=== PATIENT | male | born 1970 | race Caucasian/White ===

== ENCOUNTER 2020-04-06 11:47 | Observation (INO) | payer OTHER ==
[2020-04-06] VITALS (16 sets, daily range): BP systolic 108–128; BP diastolic 63–91
[~2020-04-06] VITALS: Ht 180.3 cm; Wt 89.5 kg
[2020-04-06 12:54] LABS: BASOPHILS # (AUTO) 0.1 X10'3 (0-0.2); BASOPHILS % (AUTO) 0.4 % (0-1); EOSINOPHILS # (AUTO) 0.1 X10'3 (0-0.9); EOSINOPHILS % (AUTO) 0.8 % (0-6); HEMATOCRIT 47.1 % (42.0-52.0); HEMOGLOBIN 15.7 g/dl (14.0-17.9); LYMPHOCYTES # (AUTO) 1.7 X10'3 (1.1-4.8); LYMPHOCYTES % (AUTO) 10.7 % (21-51); MEAN CORPUSCULAR HEMOGLOBIN 30.8 PG (27.0-31.0); MEAN CORPUSCULAR HGB CONC 33.4 g/dL (33.0-36.5); MEAN CORPUSCULAR VOLUME 92.3 FL (78-98); MEAN PLATELET VOLUME 7.8 FL (7.4-10.4); MONOCYTES # (AUTO) 1.4 X10'3 (0-0.9); MONOCYTES % (AUTO) 9.1 % (2-12); NEUTROPHILS # (AUTO) 12.2 X10'3 (1.8-7.7); PLATELET COUNT 430 X10'3 (140-440); RED CELL DISTRIBUTION WIDTH 14.6 % (11.5-14.5); WHITE BLOOD COUNT 15.4 X10'3 (4.5-11.0)
[2020-04-06 13:11] LABS: ALANINE AMINOTRANSFERASE 18 U/L (12-78); ALBUMIN 3.5 G/DL (3.4-5.0); ALBUMIN/GLOBULIN RATIO 0.8 (1.1-1.5); ALKALINE PHOSPHATASE 71 IU/L (46-116); ANION GAP 6 (8-16); ASPARTATE AMINO TRANSFERASE 11 U/L (10-37); BILIRUBIN,TOTAL 0.9 MG/DL (0.1-1.0); BLOOD UREA NITROGEN 19 MG/DL (7-18); BUN/CREATININE RATIO 22.1 (5.4-32.0); CALCIUM 9.3 MG/DL (8.5-10.1); CHLORIDE 102 MMOL/L (99-107); CREATININE 0.86 MG/DL (0.60-1.10); GLUCOSE 99 MG/DL (70-104); POTASSIUM 4.2 MMOL/L (3.5-5.1); SODIUM 137 MMOL/L (135-145); TOTAL PROTEIN 7.7 G/DL (6.4-8.2); eGFR > 90 ML/MIN
[2020-04-06] MEDS ORDERED: ondansetron/PF 4mg/2ml inj IV ONE (13:25)
[2020-04-06] MEDS ORDERED: morphine 4 MG/ML inj SYRINge IV ONE (13:25)
[2020-04-06] MEDS ORDERED: normal saline 1000ML IV soln IVB ONE (14:15)
[2020-04-06] MEDS ORDERED: cefoxitin sod inj 2,000 MG in normal saline 100ml IV soln 100 ML IV STA (14:19)
[2020-04-06 15:05] LABS: CLARITY,URINE CLEAR (Clear); COLOR,URINE YELLOW (Yellow); GLUCOSE, URINE NEGATIVE (Neg); KETONES,URINE TRACE mg/dl (Neg); LEUKOCYTE ESTERASE ,URINE NEGATIVE (Neg); NITRITES, URINE NEGATIVE (Neg); OCCULT BLOOD,URINE TRACE-INTACT (Neg); PROTEIN,URINE NEGATIVE (Neg); UROBILINOGEN,URINE 0.2 E.U/dL (0.2-1.0)
[2020-04-06 15:06] LABS: UA COLLECTION TYPE URINAL
[2020-04-06 15:08] LABS: CHOL/HDL RATIO 2.4 (0.00-4.99); CHOLESTEROL 145 MG/DL (0-200); HDL CHOLESTEROL 60 MG/DL (35-60); LDL CHOLESTEROL 68 MG/DL (50-100); TRIGLYCERIDES 63 MG/DL (20-135)
[2020-04-06 15:11] LABS: BACTERIA,URINE NONE SEEN /HPF (Neg); MUCUS STRANDS NONE SEEN /LPF (Neg); RBC,URINE 0-2 /HPF (0-2); SQUAMOUS EPITHELIAL CELL,UR NONE SEEN /LPF (FEW); WBC,URINE NONE SEEN /HPF (0-4)
[2020-04-06] MEDS ORDERED: NO HOME MEDS (15:15)
[2020-04-06] MEDS ORDERED: potassium Cl 20 mEq SR tablet PO PRN ×2 (15:40)
[2020-04-06] MEDS ORDERED: magnesium 2GM in 50ml NS 50 ML IV PRN (15:40)
[2020-04-06] MEDS ORDERED: magnesium 4gm in 100ml NS 100 ML IV PRN (15:40)
[2020-04-06] MEDS ORDERED: nicotine 14mg patch - 24hr TD ONE (15:40)
[2020-04-06] MEDS ORDERED: HYDROmorphone inj. 0.5 MG/0.5 ML DISP.SYRIN IV PRN (15:40)
[2020-04-06] MEDS ORDERED: ondansetron/PF 4mg/2ml inj IV PRN ×2 (15:40→16:00)
[2020-04-06] MEDS ORDERED: acetaminophen 325mg tablet PO PRN (15:40)
[2020-04-06] MEDS ORDERED: magnesium hydroxide 30ml (MOM) UD suspension PO PRN (15:40)
[2020-04-06] MEDS ORDERED: potassium Cl 40MEQ/1/2NS 520ml 520 ML IV PRN ×2 (15:40)
[2020-04-06] MEDS ORDERED: morphine 2 MG/ML inj. syringe IV PRN ×2 (15:40→16:00)
[2020-04-06] MEDS ORDERED: mag hydrox/Alum hydrox/simeth 30ml oral suspension PO PRN (15:40)
[2020-04-06] MEDS ORDERED: LIDOcaine 1% 30ml preserv. free vial ONE (15:57)
[2020-04-06] MEDS ORDERED: BUPIVAcaine/PF 2.5 mg/ml (0.25%) 30ml vial ONE (15:57)
[2020-04-06] MEDS: piperacillin/tazo 4.5gm/100ml 100 ML IV SCH (16:00)
[2020-04-06] MEDS ORDERED: morphine 4 MG/ML inj SYRINge IV PRN (16:00)
[2020-04-06] MEDS ORDERED: proCHLORperazine 10 MG/2 ml inj IV PRN (16:00)
[2020-04-06] MEDS ORDERED: ringers solution, lacted 1,000 ML IV SCH (16:00)
[2020-04-06] MEDS ORDERED: meperidine/PF 25mg/ml syringe IV PRN ×2 (16:00)
[2020-04-06] MEDS ORDERED: haloperidol lactate 5mg/ml inj IM PRN (16:05)
[2020-04-06] MEDS ORDERED: LORazepam 1 MG tablet PO PRN (16:05)
[2020-04-06] MEDS ORDERED: LORazepam 2 mg/ml vial IV PRN (16:05)
[2020-04-06] MEDS ORDERED: haloperidol 5mg tablet PO PRN (16:05)
[2020-04-06] MEDS ORDERED: sevoflurane 250ml liquid IH ONE (16:15)
[2020-04-06] MEDS ORDERED: rocuronium 10mg/ml inj IV ONE ×2 (16:15→16:55)
[2020-04-06] MEDS ORDERED: midazolam 2 mg/2 ml injection ONE (16:18)
[2020-04-06] MEDS ORDERED: fentaNYL/PF 50MCG/1 ML 2ML syringe ONE (16:18)
[2020-04-06] MEDS ORDERED: glycopyrrolate 0.2mg/ml inj ONE (16:55)
[2020-04-06] MEDS ORDERED: LIDOcaine 2% (20mg/ml) 5ml vial ONE (16:55)
[2020-04-06] MEDS ORDERED: acetaminophen 1,000mg/100ml IV 100 ML IV ONE (16:55)
[2020-04-06] MEDS ORDERED: ondansetron/PF 4mg/2ml inj ONE (16:55)
[2020-04-06] MEDS ORDERED: dexamethasone sod phosphate 4mg/ml inj. ONE (16:55)
[2020-04-06] MEDS ORDERED: propofol inj 20 ML IV ONE (16:55)
[2020-04-06] MEDS ORDERED: neostigmine methylsulfate 1 MG/ML 10ml vial ONE (16:55)
[2020-04-06] MEDS ORDERED: sugammadex 200mg/2ml injection IV ONE (17:10)
--- NOTE | 2020-04-06 17:11 | NUR ---
Received from OR via ICU BED , accompanied by Anesthesiologist JOSE and report given by Anesthesiolgist. PATIENT WITH 20GPIV IN RIGHT UE RUNNING NS AT 100. 3 ABDOMINAL LAP SITES PRESENT. NO DRAINAGE EVIDENT. VSS. 10L MASK ON WITH 100% SATURATIONS. MEDICATED FOR PAIN UPON ARRIVAL. SCDS DONNED. Addendum: 04/06/20 at 1726 by Esteban Low RN, RN Amended: Links added.
[2020-04-06] MEDS ORDERED: HYDROcodone/acetaminophen 10/325mg tab PO PRN (17:20)
[2020-04-06] MEDS ORDERED: HYDROcodone/acetaminophen 5mg/325mg tablet PO PRN (17:20)
[2020-04-06] MEDS: meperidine/PF 25mg/ml syringe IV PRN ×2 (17:36→17:42)
--- NOTE | 2020-04-06 18:31 | NUR ---
ALL CRITERIA FOR DC TO THE FLOOR HAS BEEN ACHIEVED. 2 RAILS UP. BED LOW, CALL LIGHT PRESENT. GAVE REPORT TO RN . PAIN AT A TOLERABLE LEVEL AT THIS TIME. DRESSINGS CDI. CARE TURNED OVER TO NICHELLE CHEN. VSS. DENIES PAIN. ONE BAG OF BELONGINGS PLACED IN ROOM 355B. CARE TURNED OVER Addendum: 04/06/20 at 1832 by Esteban Crockett - NICHELLE STEWARD Amended: Links added.
--- NOTE | 2020-04-06 18:55 | NUR ---
1830: Received report from NICHELLE Orellana, Patient arrived to unit into 355A 2RN transporting, resting comfortably. 3 Lap iva [facility],
[2020-04-06] MEDS ORDERED: enoxaparin 40mg/0.4ml syringe SQ SCH (20:00)
[2020-04-06] MEDS: K and/or MAG REPLACEMENT MC SCH (20:00)
[2020-04-07] VITALS: BP 118/79
[2020-04-07] MEDS: piperacillin/tazo 4.5gm/100ml 100 ML IV SCH (01:20)
[2020-04-07] MEDS: normal saline 1000ml 1,000 ML IV SCH ×2 (01:37→01:40)
[2020-04-07 04:48] VITALS: BP 113/73
--- NOTE | 2020-04-07 06:30 | NUR ---
Patient in room [facility] 355. I have received report from VIRI STEWARD and had the opportunity to ask questions and assume patient care.
--- NOTE | 2020-04-07 06:40 | NUR ---
Problems reprioritized. Patient report given, questions answered & plan of care reviewed with NICHELLE Whatley.
[2020-04-07 06:44] LABS: BASOPHILS % (AUTO) 0.3 % (0-1); EOSINOPHILS % (AUTO) 0 % (0-6); HEMOGLOBIN 13.9 g/dl (14.0-17.9); LYMPHOCYTES # (AUTO) 0.7 X10'3 (1.1-4.8); LYMPHOCYTES % (AUTO) 5.8 % (21-51); MEAN CORPUSCULAR HEMOGLOBIN 30.9 PG (27.0-31.0); MEAN CORPUSCULAR HGB CONC 33.2 g/dL (33.0-36.5); MEAN CORPUSCULAR VOLUME 93.2 FL (78-98); MEAN PLATELET VOLUME 8.1 FL (7.4-10.4); MONOCYTES # (AUTO) 0.9 X10'3 (0-0.9); NEUTROPHILS # (AUTO) 11.2 X10'3 (1.8-7.7); NEUTROPHILS % (AUTO) 86.9 % (42-75); PLATELET COUNT 392 X10'3 (140-440); RED BLOOD COUNT 4.51 X10'6 (4.70-6.10); RED CELL DISTRIBUTION WIDTH 14.4 % (11.5-14.5); WHITE BLOOD COUNT 12.9 X10'3 (4.5-11.0)
[2020-04-07 07:00] VITALS: BP 123/81
[2020-04-07 07:14] LABS: ALANINE AMINOTRANSFERASE 21 U/L (12-78); ALBUMIN 2.8 G/DL (3.4-5.0); ALBUMIN/GLOBULIN RATIO 0.8 (1.1-1.5); ALKALINE PHOSPHATASE 61 IU/L (46-116); AMYLASE 18 U/L (25-115); ANION GAP 6 (8-16); ASPARTATE AMINO TRANSFERASE 8 U/L (10-37); BILIRUBIN,TOTAL 0.8 MG/DL (0.1-1.0); BLOOD UREA NITROGEN 11 MG/DL (7-18); BUN/CREATININE RATIO 16.9 (5.4-32.0); CALCIUM 8.5 MG/DL (8.5-10.1); CHLORIDE 105 MMOL/L (99-107); CREATININE 0.65 MG/DL (0.60-1.10); GLUCOSE 124 MG/DL (70-104); LIPASE < 50 U/L (73-393); MAGNESIUM 1.9 MG/DL (1.5-2.4); PHOSPHORUS 3.7 MG/DL (2.3-4.5); POTASSIUM 4.2 MMOL/L (3.5-5.1); SODIUM 138 MMOL/L (135-145); TOTAL CARBON DIOXIDE 26.7 MMOL/L (24-32); TOTAL PROTEIN 6.3 G/DL (6.4-8.2); eGFR > 90 ML/MIN
[2020-04-07] MEDS ORDERED: thiamine 100mg tablet PO SCH (08:00)
[2020-04-07] MEDS: K and/or MAG REPLACEMENT MC SCH (08:00)
[2020-04-07] MEDS ORDERED: folic acid 1mg tablet PO SCH (08:00)
[2020-04-07] MEDS ORDERED: multivitamins, therapeutics tablet PO SCH (08:00)
[2020-04-07] MEDS ORDERED: HYDR-3972 PO (09:21)
--- NOTE | 2020-04-07 12:04 | NUR ---
PT DISCHARGED IN STABLE CONDITION. LEFT FACILITY IN PRIVATE VEHICLE WITH MOTHER. IV DC CANULA INTACT. FOLLOW UP INSTRUCTIONS GIVEN, ALL QUESTIONS ANSWERED. Addendum: 04/07/20 at 1205 by Daily Boyd RN Amended: Links added.
== END 2020-04-07 10:53 | disposition home or self-care (01) ==
LOC: ER 11:47 → PACU 15:40 → SUR 3N 18:45
PROVIDERS: ADMIT Family Medicine; ATTEND Family Medicine
DX: K35.30 Acute appendicitis with localized peritonitis, without perforation or gangrene (principal); Z20.822 Contact with and (suspected) exposure to COVID-19; N28.1 Cyst of kidney, acquired; Z87.891 Personal history of nicotine dependence
CPT/HCPCS: 36415; 44970; 74176; 80053; 80061; 81001; 82150; 82948; 83690; 83735; 84100; 85025; 85610; 87635; 93005; 96365; 96366; 96372; 96375; 96376; 99285; 99406; C9399; C9803; G0378; J0131; J0694; J1100; J2001; J2175; J2250; J2270; J2405; J2543; J2704; J2710; J3010; J3490; J7030; S2900; A4215; A4618; A7000; J1650

== ENCOUNTER 2022-09-17 15:41 | Inpatient (IN) | payer MEDICAID, SELFPAY ==
[~2022-09-17] VITALS: Ht 181.6 cm; Wt 82.2 kg
[~2022-09-17 15:41] MED LIST: HYDR-3972 PO; NO HOME MEDS
[2022-09-17] MEDS ORDERED: normal saline 1000ml 1,000 ML IV ONE ×2 (16:20→17:35)
[2022-09-17] MEDS ORDERED: famotidine/PF 10 mg/ml inj IV ONE (16:20)
[2022-09-17] MEDS ORDERED: ondansetron/PF 4mg/2ml inj IV ONE (16:20)
[2022-09-17 17:01] LABS: BASOPHILS % (AUTO) 0.2 % (0-1); EOSINOPHILS # (AUTO) 0.1 X10'3 (0-0.9); EOSINOPHILS % (AUTO) 0.4 % (0-6); HEMATOCRIT 47.8 % (42.0-52.0); HEMOGLOBIN 15.8 g/dl (14.0-17.9); LYMPHOCYTES # (AUTO) 1.1 X10'3 (1.1-4.8); LYMPHOCYTES % (AUTO) 6.2 % (21-51); MEAN CORPUSCULAR HEMOGLOBIN 30.6 PG (27.0-31.0); MEAN PLATELET VOLUME 8.1 FL (7.4-10.4); MONOCYTES # (AUTO) 1.6 X10'3 (0-0.9); MONOCYTES % (AUTO) 8.8 % (2-12); NEUTROPHILS # (AUTO) 15.4 X10'3 (1.8-7.7); NEUTROPHILS % (AUTO) 84.4 % (42-75); PLATELET COUNT 409 X10'3 (140-440); RED BLOOD COUNT 5.15 X10'6 (4.70-6.10); RED CELL DISTRIBUTION WIDTH 15.3 % (11.5-14.5); WHITE BLOOD COUNT 18.2 X10'3 (4.5-11.0)
[2022-09-17 17:21] LABS: ALANINE AMINOTRANSFERASE 25 U/L (12-78); ALBUMIN/GLOBULIN RATIO 1.1 (1.1-1.5); ALKALINE PHOSPHATASE 63 IU/L (46-116); ANION GAP 16 (8-16); ASPARTATE AMINO TRANSFERASE 22 U/L (10-37); BILIRUBIN,TOTAL 2.1 MG/DL (0.1-1.0); BLOOD UREA NITROGEN 48 MG/DL (7-18); BUN/CREATININE RATIO 19.8 (10.0-20.0); CALCIUM 9.4 MG/DL (8.5-10.1); CHLORIDE 93 MMOL/L (99-107); CREATININE 2.43 MG/DL (0.60-1.10); GLUCOSE 114 MG/DL (70-104); LIPASE < 50 U/L (73-393); MAGNESIUM 2.2 MG/DL (1.5-2.4); POTASSIUM 3.8 MMOL/L (3.5-5.1); SODIUM 134 MMOL/L (135-145); TOTAL PROTEIN 7.8 G/DL (6.4-8.2); eGFR 28 ML/MIN
[2022-09-17] MEDS ORDERED: acetaminophen 325mg tablet PO PRN ×2 (17:45)
[2022-09-17] MEDS ORDERED: ondansetron/PF 4mg/2ml inj IV PRN (17:45)
[2022-09-17] MEDS ORDERED: mag hydrox/Alum hydrox/simeth 30ml oral suspension PO PRN (17:45)
[2022-09-17] MEDS ORDERED: morphine 2 MG/ML inj. syringe IV PRN ×2 (17:45)
[2022-09-17] MEDS ORDERED: metoclopramide 5 mg/ml inj IV PRN (17:45)
[2022-09-17] MEDS ORDERED: magnesium hydroxide 30ml (MOM) UD suspension PO PRN (17:45)
[2022-09-17] MEDS: normal saline 1000ml 1,000 ML IV SCH (23:52)
[2022-09-17] MEDS: docusate sod 100mg capsule PO SCH (23:53)
[2022-09-18 03:07] VITALS: BP 93/63; PULSE 66; RESP 16; TEMP 98; O2SAT 96
[2022-09-18] MEDS: normal saline 1000ml 1,000 ML IV SCH (03:45)
[2022-09-18 03:57] VITALS: RESP 14; O2SAT 98
--- NOTE | 2022-09-18 06:22 | NUR ---
Patient in room U 3026. I have received report from Nabor STEWARD and had the opportunity to ask questions and assume patient care. Pt sleeping .no distress. Addendum: 09/18/22 at 0644 by Saida Hutton RN Amended: Links added.
--- NOTE | 2022-09-18 06:42 | NUR ---
Problems reprioritized. Patient report given, questions answered & plan of care reviewed with Saida.
[2022-09-18 06:54] VITALS: BP 103/71; PULSE 69; RESP 18; TEMP 98; O2SAT 95
[2022-09-18 07:14] LABS: BASOPHILS % (AUTO) 0.4 % (0-1); EOSINOPHILS # (AUTO) 0.3 X10'3 (0-0.9); EOSINOPHILS % (AUTO) 2.9 % (0-6); HEMATOCRIT 40.3 % (42.0-52.0); HEMOGLOBIN 13.4 g/dl (14.0-17.9); LYMPHOCYTES # (AUTO) 2.2 X10'3 (1.1-4.8); MEAN CORPUSCULAR HEMOGLOBIN 31.1 PG (27.0-31.0); MEAN CORPUSCULAR HGB CONC 33.2 g/dL (33.0-36.5); MEAN CORPUSCULAR VOLUME 93.8 FL (78-98); MONOCYTES # (AUTO) 0.9 X10'3 (0-0.9); MONOCYTES % (AUTO) 9.2 % (2-12); NEUTROPHILS # (AUTO) 6.4 X10'3 (1.8-7.7); NEUTROPHILS % (AUTO) 65.5 % (42-75); PLATELET COUNT 325 X10'3 (140-440); RED BLOOD COUNT 4.29 X10'6 (4.70-6.10); WHITE BLOOD COUNT 9.8 X10'3 (4.5-11.0)
[2022-09-18 07:27] LABS: ANION GAP 12 (8-16); BLOOD UREA NITROGEN 34 MG/DL (7-18); BUN/CREATININE RATIO 30.1 (10.0-20.0); CALCIUM 8.2 MG/DL (8.5-10.1); CHLORIDE 102 MMOL/L (99-107); CREATININE 1.13 MG/DL (0.60-1.10); GLUCOSE 93 MG/DL (70-104); POTASSIUM 3.4 MMOL/L (3.5-5.1); SODIUM 138 MMOL/L (135-145); TOTAL CARBON DIOXIDE 24.5 MMOL/L (24-32); eGFR 68 ML/MIN
[2022-09-18] MEDS: docusate sod 100mg capsule PO SCH (08:00)
[2022-09-18 08:22] VITALS: RESP 18; O2SAT 95
[2022-09-18 11:39] VITALS: BP 102/66; PULSE 71; RESP 17; TEMP 97.5; O2SAT 96
--- NOTE | 2022-09-18 11:41 | NUR ---
All written and verbal orders for D/c given, all questions answered. pt stated he had all belongings. Info on quitting smoking given. Addendum: 09/18/22 at 1143 by Saida Hutton RN Amended: Links added.
== END 2022-09-18 11:37 | disposition home or self-care (01) | DRG 249 ==
LOC: ER 15:42 → ED HOLD 17:50 → PCU 3S 09-18 02:57
PROVIDERS: ADMIT Internal Medicine; ATTEND Internal Medicine
DX: A05.9 Bacterial foodborne intoxication, unspecified (principal); N17.9 Acute kidney failure, unspecified; E87.1 Hypo-osmolality and hyponatremia; E86.0 Dehydration; K52.9 Noninfective gastroenteritis and colitis, unspecified; F17.290 Nicotine dependence, other tobacco product, uncomplicated; Z79.899 Other long term (current) drug therapy; Z90.49 Acquired absence of other specified parts of digestive tract
CPT/HCPCS: 36415; 80048; 80053; 83690; 83735; 85025; 87081; 99285; G0378; J2405; J3490; J7030